=== PATIENT | female | born 1975 | race Caucasian/White ===

== ENCOUNTER 2017-02-25 19:21 | Emergency (ER) | payer BC ==
[2017-02-25 20:07] VITALS: BP 110/73
--- NOTE | 2017-02-25 21:11 | UC ---
Dental HPI - HPI Summary HPI Summary: compalint of dental pain in her left upper jaw that started yesterday swelling around her teeth and pain in her cheeck broken tooth in the area of gum swelling talked to [facility] and they are helping her with signing up for dental care denies fever has been taking ibuprofen for pain without much relief - History of Current Complaint Chief Complaint: UCDentalProblem Stated Complaint: TOOTH INFECTION Time Seen by Provider: 02/25/17 21:02 Hx Obtained From: Patient Hx Last Menstrual Period: "Irregular" PCOS - Allergies/Home Medications Allergies/Adverse Reactions: Allergies Allergy/AdvReac Type Severity Reaction Status Date / Time Morphine Allergy Severe Abdominal Verified 02/25/17 20:02 Pain Tomato Allergy Intermediate Hives Verified 02/25/17 20:02 Banana Allergy Mild Rash Verified 02/25/17 20:02 Hydrocodone Allergy Mild Pain Verified 02/25/17 20:02 Iohexol [From Omnipaque] Allergy Sneezing Verified 02/25/17 20:02 Latex Allergy Rash Verified 02/25/17 20:02 Pseudoephedrine Allergy Vomiting Verified 02/25/17 20:02 [From Sudafed] BLEACH Allergy Difficulty Uncoded 02/25/17 20:02 Breathing strawberries Allergy Hives/Diff. Uncoded 02/25/17 20:02 Breathing/I tching treenuts Allergy Hives/Diff. Uncoded 02/25/17 20:02 Breathing/I tching Home Medications: Home Medications Cyanocobalamin [Vitamin B12] 1,500 mcg SL DAILY 02/25/17 [History Confirmed 03/09] Multivitamins/Minerals TAB* [Thera M Plus TAB*] 1 tab PO DAILY 02/25/17 [ History Confirmed 02/25/17] PMH/Surg Hx/FS Hx/Imm Hx Previously Healthy: Yes - dental decay Endocrine History Of: Denies: Diabetes - Hx of pre-diabetes, resolved since bariatric surgery 2012 , Thyroid Disease Cardiovascular History Of: Reports: Hypertension - Hx of, reduced with bariatric surgery Denies: Cardiac Disorders Respiratory History Of: Reports: Asthma, Pneumonia - Hx of as child, per pt Denies: COPD GI/ History Of: Reports: Gall Bladder Disease - Cholecystectomy with marina-en- Y procedure, 2012 Denies: Ulcer - gerd Neurological History Of: Reports: Seizures - Hx of stress induced seizures, per pt, Migraine - Hx OF, NONE SINCE MAY 2013 Psychological History Of: Reports: Anxiety - No longer takes anxiety medication , Depression - Surgical History Surgical History: Yes Surgery Procedure, Year, and Place: 09/2013: Marina-en-Y with cholecystectomy at [facility] [place] with Dr. Diaz. 02/2015 Lap hernia repair. Gastric bypass 2012 - Family History Known Family History: Positive: Hypertension, Diabetes - Social History Occupation: Employed Full-time Lives: With Family Alcohol Use: Occasionally Alcohol Amount: 1 glass of wine 2x per month Substance Use Type: None Smoking Status (MU): Heavy Every Day Tobacco Smoker Type: Cigarettes Amount Used/How Often: 1/2 PPD Have You Smoked in the Last Year: Yes - Immunization History Most Recent Influenza Vaccination: 2012 Most Recent Tetanus Shot: UNK Most Recent Pneumonia Vaccination: NEVER Review of Systems Constitutional: Negative Skin: Negative ENT: Dental Pain Respiratory: Negative Cardiovascular: Negative Gastrointestinal: Negative Genitourinary: Negative Motor: Negative Neurovascular: Negative Musculoskeletal: Negative Neurological: Negative Psychological: Negative All Other Systems Reviewed And Are Negative: Yes Physical Exam Triage Information Reviewed: Yes Appearance: No Pain Distress, Well-Nourished Vital Signs: Initial Vital Signs Temp 98 F 02/25/17 20:00 Pulse 74 02/25/17 20:00 Resp 16 02/25/17 20:00 BP 110/73 02/25/17 20:00 Pulse Ox 100 02/25/17 20:00 Vital Signs Reviewed: Yes Eyes: Positive: Conjunctiva Clear ENT: Positive: Pharynx normal, TMs normal Dental: Positive: Gross Decay/Caries @, Dental Fracture @, Abscess @ - 13,14 Neck: Positive: No Lymphadenopathy Respiratory: Positive: Lungs clear, Normal breath sounds, No respiratory distress Cardiovascular: Positive: RRR, No Murmur, Pulses Normal Abdomen Description: Positive: Nontender, Soft Bowel Sounds: Positive: Present Musculoskeletal Exam: Normal Neurological: Positive: Alert Psychological Exam: Normal Skin Exam: Normal Dental Complaint Course/Dx - Course Course Of Treatment: ISTOP shows that she has had tramadol 05/2016 - Differential Dx/Diagnosis Differential Diagnosis/Dx: Dental Abscess, Fractured Tooth Provider Diagnoses: dental abscess Discharge - Discharge Plan Condition: Stable Disposition: HOME Prescriptions: Amoxicillin/Clavulanate TAB* [Augmentin TAB 875*] 875 mg PO BID #20 tab traMADol TAB* [Ultram*] 50 mg PO Q6HR PRN #12 tab MDD 4 PRN Reason: Pain - Uncontrolled Patient Education Materials: Dental Abscess (ED) Referrals: BAHMAN Tejada [Primary Care Provider] - Additional Instructions: DENTAL PAIN What Causes Dental Pain? Cavities (tooth decay) are the most common cause of dental pain. Cavities usually happen because of poor oral hygiene, causing bacteria to build up and form plaque. Plaque breaks down the tooth enamel and leads to cavities. If untreated, cavities can lead to tooth abscesses, gum disease, and, finally, loss of the tooth. Prevention of tooth decay is the best way to avoid toothaches. Symptoms Might Include: Aching or sharp pain in the tooth Sensitivity to hot or cold foods and fluids Pain, redness or swelling of the gums Swelling of the face or jaw Treatment Recommendations: Take acetaminophen (Tylenol?) or ibuprofen (Motrin, Advil?) for pain unless you have had a problem with one of the medicines in the past. The healthcare provider may have prescribed an antibiotic medicine. The medicine should be taken until it is completely gone, even if you are feeling better. If you stop taking the medicine early, the infection may not be completely gone, and the medication may not work the next time. If you are given a prescription for pain medicine (narcotics), do not drink, drive, or operate any kind of dangerous machinery while taking that medicine. Do not place pain-killing tablets on any aching tooth or gum it can cause severe reese on the gum. Call Your Doctor or Return Here IF: You start to have severe pain. You start to have swelling in your face or neck. You start to a have fever. You start to have difficulty speaking or swallowing. You have any other new symptoms that worry you. Please call your dentist for further treatment.
[2017-02-25] MEDS ORDERED: traMADol TAB* 50 MG PO ONE (21:17)
[2017-02-25] MEDS ORDERED: Amoxicillin/Clavulanate TAB* 875 MG PO ONE (21:18)
== END 2017-02-25 21:37 | disposition home or self-care (01) ==
LOC: UCCORT 19:21
DX: K04.7 Periapical abscess without sinus (principal); J45.909 Unspecified asthma, uncomplicated; Z98.84 Bariatric surgery status; Z90.49 Acquired absence of other specified parts of digestive tract; Z88.5 Allergy status to narcotic agent; F17.210 Nicotine dependence, cigarettes, uncomplicated
CPT/HCPCS: 99212; A9270-GY; G0463

== ENCOUNTER 2017-06-19 22:01 | Emergency (ER) | payer SELFPAY ==
[2017-06-19] MEDS ORDERED: Cyclobenzaprine TAB* 10 MG PO ONE ×2 (22:13→22:32)
--- NOTE | 2017-06-19 22:20 | UC ---
Back Pain HPI - HPI Summary HPI Summary: patient works at a [employer], was transferring a patient, felt a pop in her back and had some low back pain, it has progressed up the the right mid back as well. stiff and achy. - History of Current Complaint Stated Complaint: BACK INJURY (WC) Hx Obtained From: Patient Hx Last Menstrual Period: "Irregular" PCOS ?: No Onset/Duration: Sudden Onset, Lasting Days Timing: Constant, Lasting Hours Severity Initially: Mild Severity Currently: Moderate Back Pain: Is Discrete @ Character: Dull, Aching Aggravating: Movement, Lifting, Bending Alleviating: Rest - Allergies/Home Medications Allergies/Adverse Reactions: Allergies Allergy/AdvReac Type Severity Reaction Status Date / Time Morphine Allergy Severe Abdominal Verified 02/25/17 20:02 Pain Tomato Allergy Intermediate Hives Verified 02/25/17 20:02 Banana Allergy Mild Rash Verified 02/25/17 20:02 Hydrocodone Allergy Mild Pain Verified 02/25/17 20:02 Iohexol [From Omnipaque] Allergy Sneezing Verified 02/25/17 20:02 Latex Allergy Rash Verified 02/25/17 20:02 Pseudoephedrine Allergy Vomiting Verified 02/25/17 20:02 [From Sudafed] BLEACH Allergy Difficulty Uncoded 02/25/17 20:02 Breathing strawberries Allergy Hives/Diff. Uncoded 02/25/17 20:02 Breathing/I tching treenuts Allergy Hives/Diff. Uncoded 02/25/17 20:02 Breathing/I tching PMH/Surg Hx/FS Hx/Imm Hx Previously Healthy: Yes - Surgical History Surgical History: Yes Surgery Procedure, Year, and Place: 09/2013: Marina-en-Y with cholecystectomy at [facility] [place] with Dr. Diaz. 02/2015 Lap hernia repair. Gastric bypass 2012 - Family History Known Family History: Positive: Hypertension, Diabetes - Social History Alcohol Use: Occasionally Alcohol Amount: 1 glass of wine 2x per month Substance Use Type: None Smoking Status (MU): Heavy Every Day Tobacco Smoker Type: Cigarettes Amount Used/How Often: 1/2 PPD Have You Smoked in the Last Year: Yes - Immunization History Most Recent Influenza Vaccination: 2012 Most Recent Tetanus Shot: UNK Most Recent Pneumonia Vaccination: NEVER Review of Systems Constitutional: Negative Skin: Negative Eyes: Negative ENT: Negative Respiratory: Negative Cardiovascular: Negative Gastrointestinal: Negative Genitourinary: Negative Motor: Negative Musculoskeletal: Decreased ROM, Myalgia Neurological: Negative Psychological: Negative All Other Systems Reviewed And Are Negative: Yes Physical Exam Triage Information Reviewed: Yes Appearance: Well-Appearing, Well-Nourished, Pain Distress Vital Signs Reviewed: Yes Eye Exam: Normal ENT Exam: Normal ENT: Positive: Hearing grossly normal, Pharynx normal, TMs normal Dental Exam: Normal Neck exam: Normal Neck: Positive: Supple, Nontender, No Lymphadenopathy Respiratory Exam: Normal Respiratory: Positive: Chest non-tender, Lungs clear, Normal breath sounds Cardiovascular Exam: Normal Cardiovascular: Positive: RRR, No Murmur, Pulses Normal Bowel Sounds: Positive: Present Musculoskeletal: Positive: No Edema, Strength Limited @ - able to walk withoutdifficulty, no radiating pain, ROM Limited @ - in FLX and ext, traunk rotation Neurological Exam: Normal Neurological: Positive: Alert, Muscle Tone Normal Psychological Exam: Normal Skin Exam: Normal Back Pain Course/Dx - Course Course Of Treatment: hx obtained, exam performed ,meds reviewed, flexeril prescribed. - Differential Dx/Diagnosis Differential Diagnosis/HQI/PQRI: Herniated Disc, Strain, Sprain Provider Diagnoses: low back strain. latissimus dorsi strain Discharge - Discharge Plan Condition: Stable Disposition: HOME Prescriptions: Cyclobenzaprine TAB* [Flexeril 10 MG TAB*] 10 mg PO BID PRN #12 tab PRN Reason: Spasms Patient Education Materials: Low Back Strain (ED), Core Strengthening Exercises (GEN), Lower Back Exercises (ED) Additional Instructions: 1. use the flexeril as prescribed. 2. take the next 48 hours to work on stretching and resting the back. 3. ALeve as needed for pain 4. Follow up if not improving over the next week with the orthopedic listed below.
[2017-06-19 22:22] VITALS: BP 122/80
[2017-06-19] MEDS ORDERED: Cyclobenzaprine TAB* 10 MG PO PRN (22:24)
== END 2017-06-19 22:37 | disposition home or self-care (01) ==
LOC: UCCORT 22:01
DX: S39.012A Strain of muscle, fascia and tendon of lower back, initial encounter (principal); X50.0XXA Overexertion from strenuous movement or load, initial encounter; Z88.5 Allergy status to narcotic agent; Z98.84 Bariatric surgery status; F17.210 Nicotine dependence, cigarettes, uncomplicated
CPT/HCPCS: 99212; A9270-GY; G0463